=== PATIENT | female | born 1950 | race African-American/Black ===

== ENCOUNTER 2019-05-08 17:07 | Emergency (ER) | payer MEDICARE, MEDICAID ==
[~2019-05-08] VITALS: Ht 160 cm; Wt 53.0 kg
[2019-05-08] MEDS ORDERED: DIAZEPAM 5 MG TABLET PO ONE (18:15)
[2019-05-08] MEDS ORDERED: KETOROLAC 30MG/ML VIAL IM ONE (19:15)
[2019-05-08] MEDS: KETOROLAC 60MG/2ML VIAL IM NR (19:42)
[2019-05-08 20:39] VITALS: BP 116/59
== END 2019-05-08 20:40 | disposition home or self-care (01) ==
LOC: ER 18:00
DX: M54.2 Cervicalgia (principal); E11.9 Type 2 diabetes mellitus without complications; I10 Essential (primary) hypertension; Z88.8 Allergy status to other drugs, medicaments and biological substances
CPT/HCPCS: 96372; 99283; J1885